=== PATIENT | female | born 1995 | race Caucasian/White ===

== ENCOUNTER 2019-09-15 00:44 | Inpatient (IN) | payer OTHER ==
[2019-09-15] MEDS ORDERED: Sodium Chloride 0.9% 10 ML Syringe FLUSH PRN (11:03)
[2019-09-15] MEDS ORDERED: Ondansetron 4 MG/2 ML SDV IVPUSH PRN (11:03)
[2019-09-15] MEDS ORDERED: Calcium Carbonate 500 MG Tab.Chew PO PRN (11:03)
[2019-09-15] MEDS ORDERED: Lidocaine 1% 50 ML MDV INJECT ONE (11:03)
[2019-09-15] MEDS ORDERED: Acetaminophen 325 MG Tab PO PRN (11:03)
[2019-09-15] MEDS ORDERED: Nalbuphine 10 MG/1 ML Vial IVPUSH PRN (11:03)
[2019-09-15] MEDS ORDERED: ePHEDrine 50 MG/ML SDV IVPUSH PRN (11:09)
[2019-09-15] MEDS ORDERED: fentaNYL 100 MCG/2 ML SDV EPIDUR PRN (11:09)
[2019-09-15] MEDS ORDERED: diphenhydrAMINE 50 MG/ML SDV IVPUSH PRN (11:09)
[2019-09-15] MEDS ORDERED: fentaNYL/Bupivacaine/NS 2 MCG-0.125% 250 ML EPIDUR PRN (11:09)
[2019-09-15] MEDS ORDERED: Oxytocin/Lactated Ringers 10 UNIT/1,000 ML BAG IV SCH ×2 (11:15)
--- NOTE | 2019-09-15 11:22 | PCM.PREANE ---
Preanesthetic Assessment - Procedure Proposed Procedure: Epidural - Anesthesia/Transfusion/Family Hx Anesthesia History: Prior Anesthesia Without Reaction Family History of Anesthesia Reaction: No Transfusion History: No Prior Transfusion(s) - Review of Systems General: Fatigue Pulmonary: No Symptoms Cardiovascular: No Symptoms Gastrointestinal: Abdominal Pain (labor) Neurological: No Symptoms Other: Reports: None - Physical Assessment Vital Signs: Last Vital Signs Temp 36.6 C 09/15/19 11:03 Pulse 113 H 09/15/19 11:03 Resp 14 09/15/19 11:03 BP 136/91 H 09/15/19 11:03 Pulse Ox 97 09/15/19 11:03 Height: 1.7 m Weight: 112.309 kg ASA Class: 2 Mental Status: Alert & Oriented x3 Airway Class: Mallampati = 1 Dentition: Reports: Normal Dentition Thyro-Mental Finger Breadths: 3 Mouth Opening Finger Breadths: 3 ROM/Head Extension: Full Lungs: Clear to Auscultation, Normal Respiratory Effort Cardiovascular: Regular Rate, Regular Rhythm - Allergies Allergies/Adverse Reactions: Allergies Allergy/AdvReac Type Severity Reaction Status Date / Time No Known Allergies Allergy Verified 09/15/19 11:01 - Anesthesia Plan Pre-Op Medication Ordered: None - Acknowledgements Anesthesia Type Planned: Epidural Pt an Appropriate Candidate for the Planned Anesthesia: Yes Alternatives and Risks of Anesthesia Discussed w Pt/Guardian: Yes Pt/Guardian Understands and Agrees with Anesthesia Plan: Yes PreAnesthesia Questionnaire Gastrointestinal History: Reports: GERD - HOME MEDS Home Medications: Home Meds Pnv No.122/Iron/Folic Acid [ Multi Tablet] 1 tab PO DAILY 09/15/19 [ History] - CURRENT (IN HOUSE) MEDS Current Meds: Current Medications Acetaminophen (Tylenol) 650 mg PO Q4H PRN PRN Reason: Pain (Mild 1-3) and fever Calcium Carbonate/Glycine (Tums) 1,000 mg PO Q2H PRN PRN Reason: Indigestion Diphenhydramine HCl (Benadryl) 25 mg IVPUSH Q6H PRN PRN Reason: Itching Ephedrine Sulfate (Ephedrine Sulfate) 5 mg IVPUSH ASDIRECTED PRN PRN Reason: HYPOTENTSION Fentanyl (Sublimaze) 100 mcg EPIDUR Q3H PRN PRN Reason: Pain Fentanyl/Bupivacaine HCl (Fentanyl/Bupivacaine/Ns 2 Mcg-0.125% 250 Ml) 250 ml EPIDUR CONTINUOUS PRN PRN Reason: Pain Ampicillin Sodium 2 gm/ Sodium (Chloride) 100 mls @ 200 mls/hr IV ONETIME ONE Stop: 09/15/19 11:59 Ampicillin Sodium 1 gm/ Sodium (Chloride) 100 mls @ 200 mls/hr IV Q4H [place] Lactated Ringer's (Ringers, Lactated) 1,000 mls @ 100 mls/hr IV ASDIRECTED [place] Oxytocin/Lactated Ringer's (Pitocin In Lr 10 Units/1,000 Ml) 10 unit in 1,000 mls @ 12 mls/hr IV TITRATE [place]; Protocol Oxytocin/Lactated Ringer's (Pitocin In Lr 10 Units/1,000 Ml) 10 unit in 1,000 mls @ 100 mls/hr IV .CONTINUOUS [place]; Protocol Nalbuphine HCl (Nubain) 10 mg IVPUSH Q2H PRN PRN Reason: Pain Ondansetron HCl (Zofran) 4 mg IVPUSH Q4H PRN PRN Reason: Nausea/Vomiting Sodium Chloride (Saline Flush) 10 ml FLUSH ASDIRECTED PRN PRN Reason: Keep Vein Open Discontinued Medications Lidocaine HCl (Xylocaine 1%) 50 ml INJECT ONETIME ONE Stop: 09/15/19 11:04
[2019-09-15] MEDS ORDERED: Ampicillin 2 GM in Sodium Chloride 0.9% 100 ML IV ONE (11:30)
[2019-09-15] MEDS: Lactated Ringers 1,000 ML IV SCH ×3 (11:39→15:06)
--- NOTE | 2019-09-15 15:04 | PCM.LDHP ---
<Glenroy Lockhart - Last Filed: 09/15/19 15:15> L&D History of Present Illness - General Date of Service: 09/15/19 Admit Problem/Dx: Patient Status Order with Admit Dx/Problem 09/15/19 11:04 Patient Status [ADT] Routine Admission Diagnosis/Problem Admission Diagnosis/Problem 09/15/19 14:57 Roseanne is a 32-year-old 1 para 0 white female at 40-1/7 weeks gestational age with an EDITH of 09/14/2019 admitted in active labor with advanced cervical dilation. Source of Information: Patient History Limitations: Reports: No Limitations - History of Present Illness Introduction:: Roseanne is a 32-year-old 1 para 0 white female at 40-1/7 weeks gestational age with an EDITH of 09/14/2019 admitted in active labor with advanced cervical dilation. She started labor yesterday evening 09/14/19 which progressed early this morning with contractions occurring approximately every 30 minutes. She was seen in the clinic this morning for a 40 week appointment where she was assessed to be 4 cm dilated. She was then sent to Labor and Delivery. hand rigger history 2 para 0. EDITH 09/14/19 as determined by LMP starting 12/08. and supported by 3 ultrasounds on 04/13/19, 08/31/2019/ and 09/06/2019. Patient had menarche at 14. Has hx of irregular cycles occurring every 28-36 days. She is not using any control to time conception. couse was relatively unremarkable. She declined genetic testing. She desired a minimally invasive course. Pt refused STD screening, 1-hour GTT, Tdap, influenza. Rubella immunity status unknown. Patient has not received her hepatitis B vaccination course. She plans to breastfeed. First visit was on 06/02/2019. She had an early ultrasound performed at a [facility] in [place] on 04/13/19. She had regular visits. Weight gain was from 195 pounds up to 247 pounds for a 52 pound weight gain. Vital signs are stable throughout the course and her fundal height growth was appropriate. Laboratory testing in showed blood to be O positive with a negative antibody screen. First hemoglobin is 13.4 g/dL. Platelets were 268, 000. Rubella immune status unknown. RPR is nonreactive. Urine culture was negative. Hepatitis B and HIV assays were not performed. Chlamydia and gonorrhea tests were not performed. Second trimester labs showed hemoglobin 13.8 g/dL and platelets at 261,000. 1-hour GTT was not performed. Group B strep screen was positive. Allergies: None Medications: 1. tablets one daily Past medical history: 1. Irritable bowel syndrome Past surgical history: 1. Mole removal 02/2010 2. [place] teeth removal 02/2013 Family history: Mother is alive and well. Father is alive with heart disease, had a stent placed. Has 7 brothers and 3 sisters all alive and well. MGM is alive and will at age 90+. MGF is , had 2 strokes, date of first stroke is unknown, second stroke occurred in his 70s. PGM is alive, has osteoporosis. PGF is alive , has had RI. No bleeding/clotting disorders, anesthesia problems, - related problems or clotting problems noted in the family. Social history: Patient is . Lives in [place]. is [place]. She does not use alcohol, tobacco, or drugs. Review of Systems: In general patient has no complaints other than active labor. Skin: Negative Lungs: No infectious symptoms or shortness of breath Cardiovascular: No chest pain or exercise intolerance Breasts: No lumps, changes in size, pain, dimpling, discharge or axillary or supraclavicular concerns GI: Negative : Negative Musculoskeletal: Negative Neurological: Negative In general the patient is well-developed, well-nourished, pleasant female of stated age in no acute distress. She is experiencing labor contractions. Vital signs are stable. Patient is afebrile. On last evaluation in clinic her blood pressure was 114/86. Weight was 247 pounds. Pregravid weight was 195 pounds. Pregravid BMI was 31.8. Height is 5'7". Skin is warm and dry without lesions. HEENT, neck and back within normal limits Lungs are clear with good breath sounds in all lung ocasio. Cardiovascular exam shows regular rate and rhythm without murmurs. Breast exam done at time of first visit but no repeated at this time. Patient plans to breast-feed. Abdomen is gravid with last fundal height in clinic at 40cm. Genital exam on last evaluation shows cervix to be 5 cm, 100% effaced, soft, -2 station and anterior position. Baby in cephalic position. Extremities and neurological exam are grossly within normal limits. Pain Score: 10 - Related Data Allergies/Adverse Reactions: Allergies Allergy/AdvReac Type Severity Reaction Status Date / Time No Known Allergies Allergy Verified 09/15/19 11:01 Home Medications: Home Meds Pnv No.122/Iron/Folic Acid [ Multi Tablet] 1 tab PO DAILY 09/15/19 [ History] Past Medical History Gastrointestinal History: Reports: GERD - Past Surgical History HEENT Surgical History: Reports: Other (See Below) Other HEENT Surgeries/Procedures: [place] tooth extraction Social & Family History - Family History Family Medical History: Noncontributory - Tobacco Use Smoking Status *Q: Never Smoker Second Hand Smoke Exposure: No - Caffeine Use Caffeine Use: Reports: None - Recreational Drug Use Recreational Drug Use: No H&P Review of Systems - Review of Systems: Review Of Systems: See Below L&D Exam - Exam Exam: See Below - Vital Signs Vital Signs: Last Vital Signs Temp 98 F 09/15/19 11:03 Pulse 113 H 09/15/19 11:03 Resp 14 09/15/19 11:03 BP 136/91 H 09/15/19 11:03 Pulse Ox 97 09/15/19 11:03 Weight: 112.309 kg - Patient Data Lab Results Last 24 hrs: Laboratory Results - last 24 hr 09/15/19 Range/Units 11:29 WBC 8.36 (3.98-10.04) K/mm3 RBC 4.67 (3.98-5.22) M/mm3 Hgb 13.1 (11.2-15.7) gm/dl Hct 39.1 (34.1-44.9) % MCV 83.7 D (79.4-94.8) fl MCH 28.1 (25.6-32.2) pg MCHC 33.5 (32.2-35.5) g/dl RDW Std Deviation 41.9 (36.4-46.3) fL Plt Count 256 (182-369) K/mm3 MPV 10.3 (9.4-12.3) fl Neut % (Auto) 78.6 H (34.0-71.1) % Lymph % (Auto) 13.4 L (19.3-51.7) % [place] % (Auto) 7.1 (4.7-12.5) % Eos % (Auto) 0.4 L (0.7-5.8) Baso % (Auto) 0.1 (0.1-1.2) % Neut # (Auto) 6.58 H (1.56-6.13) K/mm3 Lymph # (Auto) 1.12 L (1.18-3.74) K/mm3 Het[place] # (Auto) 0.59 H (0.24-0.36) K/mm3 Eos # (Auto) 0.03 L (0.04-0.36) K/mm3 Baso # (Auto) 0.01 (0.01-0.08) K/mm3 Result Diagrams: 09/15/19 11:29 Problem List Initiated/Reviewed/Updated: Yes Orders Last 24hrs: Active Orders 24 hr Category Date Time Status Patient Status [ADT] Routine ADT 09/15/19 11:04 Active Activity as Tolerated [RC] PFP Care 09/15/19 11:03 Active Communication Order [RC] ASDIRECTED Care 09/15/19 11:03 Active Communication Order [RC] ASDIRECTED Care 09/15/19 11:09 Active Cooling Warming Measures [RC] ASDIRECTED Care 09/15/19 11:09 Active Heart Tones [RC] ASDIRECTED Care 09/15/19 11:04 Active Notify Provider [RC] ASDIRECTED Care 09/15/19 11:09 Active Notify Provider [RC] PFP Care 09/15/19 11:03 Active Notify Provider [RC] PRN Care 09/15/19 11:03 Active Oxygen Therapy [RC] ASDIRECTED Care 09/15/19 11:09 Active Peripheral IV Care [RC] . DIRECTED Care 09/15/19 11:04 Active Pulse Oximetry [RC] ASDIRECTED Care 09/15/19 11:09 Active Urinary Catheter Assessment [RC] ASDIRECTED Care 09/15/19 11:03 Active Vital Signs [RC] ASDIRECTED Care 09/15/19 11:09 Active Vital Signs [RC] PER UNIT ROUTINE Care 09/15/19 11:03 Active RAPID PLASMA REAGIN,RPR [CHEM] Routine Lab 09/15/19 11:29 Received Acetaminophen [Tylenol] Med 09/15/19 11:03 Active 650 mg PO Q4H PRN Ampicillin 1 gm Med 09/15/19 15:30 Active Sodium Chloride 0.9% [Normal Saline] 100 ml IV Q4H Bupivicaine/fentaNYL/NS [fentaNYL/Bupivacaine/NS 2 MCG- Med 09/15/19 11:09 Active 0.125% 250 ML] 250 ml EPIDUR CONTINUOUS PRN Calcium Carbonate [Tums] Med 09/15/19 11:03 Active 1,000 mg PO Q2H PRN Lactated Ringers [Ringers, Lactated] 1,000 ml Med 09/15/19 11:15 Active IV ASDIRECTED Nalbuphine [Nubain] Med 09/15/19 11:03 Active 10 mg IVPUSH Q2H PRN Ondansetron [Zofran] Med 09/15/19 11:03 Active 4 mg IVPUSH Q4H PRN Oxytocin/Lactated Ringers [Pitocin in LR 10 Units/1,000 Med 09/15/19 11:15 Active ML] 10 unit in 1,000 ml IV .CONTINUOUS Oxytocin/Lactated Ringers [Pitocin in LR 10 Units/1,000 Med 09/15/19 11:15 Active ML] 10 unit in 1,000 ml IV TITRATE Sodium Chloride 0.9% [Saline Flush] Med 09/15/19 11:03 Active 10 ml FLUSH ASDIRECTED PRN diphenhydrAMINE [Benadryl] Med 09/15/19 11:09 Active 25 mg IVPUSH Q6H PRN ePHEDrine [ePHEDrine sulfate] Med 09/15/19 11:09 Active 5 mg IVPUSH ASDIRECTED PRN fentaNYL [Sublimaze] Med 09/15/19 11:09 Active 100 mcg EPIDUR Q3H PRN Electronic Heart Tones Ext w TOCO [WOMSER] Oth 09/15/19 11:03 Ordered Routine Electronic Heart Tones Internal [WOMSER] Per Unit Oth 09/15/19 11:03 Ordered Routine Peripheral IV Insertion Adult [OM.PC] Routine Oth 09/15/19 11:03 Ordered Resuscitation Status Routine Resus Stat 09/15/19 11:03 Ordered Medication Orders Acetaminophen (Tylenol) 650 mg PO Q4H PRN PRN Reason: Pain (Mild 1-3) and fever Calcium Carbonate/Glycine (Tums) 1,000 mg PO Q2H PRN PRN Reason: Indigestion Diphenhydramine HCl (Benadryl) 25 mg IVPUSH Q6H PRN PRN Reason: Itching Ephedrine Sulfate (Ephedrine Sulfate) 5 mg IVPUSH ASDIRECTED PRN PRN Reason: HYPOTENTSION Fentanyl (Sublimaze) 100 mcg EPIDUR Q3H PRN PRN Reason: Pain Last Admin: 09/15/19 14:26 Dose: 100 mcg Fentanyl/Bupivacaine HCl (Fentanyl/Bupivacaine/Ns 2 Mcg-0.125% 250 Ml) 250 ml EPIDUR CONTINUOUS PRN PRN Reason: Pain Ampicillin Sodium 1 gm/ Sodium (Chloride) 100 mls @ 200 mls/hr IV Q4H [place] Lactated Ringer's (Ringers, Lactated) 1,000 mls @ 100 mls/hr IV ASDIRECTED [place] Last Admin: 09/15/19 14:18 Dose: 100 mls/hr Infusion: 09/15/19 14:18 Dose: 100 mls/hr Admin: 09/15/19 11:39 Dose: 100 mls/hr Oxytocin/Lactated Ringer's (Pitocin In Lr 10 Units/1,000 Ml) 10 unit in 1,000 mls @ 12 mls/hr IV TITRATE [place]; Protocol Oxytocin/Lactated Ringer's (Pitocin In Lr 10 Units/1,000 Ml) 10 unit in 1,000 mls @ 100 mls/hr IV .CONTINUOUS [place]; Protocol Nalbuphine HCl (Nubain) 10 mg IVPUSH Q2H PRN PRN Reason: Pain Ondansetron HCl (Zofran) 4 mg IVPUSH Q4H PRN PRN Reason: Nausea/Vomiting Sodium Chloride (Saline Flush) 10 ml FLUSH ASDIRECTED PRN PRN Reason: Keep Vein Open Assessment/Plan Comment:: Assessment: 1. 40-1/7 week intrauterine , active labor, membranes ruptured via amniotomy. 2. Group B strep positive status. Patient is receiving anitbiotis per protocol 3. Patient plans to breastfeed 4. Patient desires epidural in labor and delivery 5. Rubella immune status unknown 6. Patient has not received her Tdap 7. RPR nonreactive Plan: 1. Anticipate normal spontaneous vaginal delivery 2. Epidural for labor and analgesia 3. Support breast-feeding decision 4. Routine labor care. <Rafael Soler - Last Filed: 09/15/19 17:58> L&D History of Present Illness - General Admit Problem/Dx: Patient Status Order with Admit Dx/Problem 09/15/19 11:04 Patient Status [ADT] Routine Admission Diagnosis/Problem Admission Diagnosis/Problem L&D Exam - Vital Signs Vital Signs: Last Vital Signs Temp 36.6 C 09/15/19 11:03 Pulse 113 H 09/15/19 11:03 Resp 14 09/15/19 11:03 BP 136/91 H 09/15/19 11:03 Pulse Ox 97 09/15/19 11:03 - Patient Data Lab Results Last 24 hrs: Laboratory Results - last 24 hr 09/15/19 09/15/19 Range/Units 11:29 11:29 WBC 8.36 (3.98-10.04) K/mm3 RBC 4.67 (3.98-5.22) M/mm3 Hgb 13.1 (11.2-15.7) gm/dl Hct 39.1 (34.1-44.9) % MCV 83.7 D (79.4-94.8) fl MCH 28.1 (25.6-32.2) pg MCHC 33.5 (32.2-35.5) g/dl RDW Std Deviation 41.9 (36.4-46.3) fL Plt Count 256 (182-369) K/mm3 MPV 10.3 (9.4-12.3) fl Neut % (Auto) 78.6 H (34.0-71.1) % Lymph % (Auto) 13.4 L (19.3-51.7) % [place] % (Auto) 7.1 (4.7-12.5) % Eos % (Auto) 0.4 L (0.7-5.8) Baso % (Auto) 0.1 (0.1-1.2) % Neut # (Auto) 6.58 H (1.56-6.13) K/mm3 Lymph # (Auto) 1.12 L (1.18-3.74) K/mm3 [place] # (Auto) 0.59 H (0.24-0.36) K/mm3 Eos # (Auto) 0.03 L (0.04-0.36) K/mm3 Baso # (Auto) 0.01 (0.01-0.08) K/mm3 RPR Non-reactive (NONREACTIVE) Result Diagrams: 09/15/19 11:29 Orders Last 24hrs: Active Orders 24 hr Category Date Time Status Patient Status [ADT] Routine ADT 09/15/19 11:04 Active Activity as Tolerated [RC] PFP Care 09/15/19 11:03 Active Communication Order [RC] ASDIRECTED Care 09/15/19 11:03 Active Communication Order [RC] ASDIRECTED Care 09/15/19 11:09 Active Cooling Warming Measures [RC] ASDIRECTED Care 09/15/19 11:09 Active Heart Tones [RC] ASDIRECTED Care 09/15/19 11:04 Active Notify Provider [RC] ASDIRECTED Care 09/15/19 11:09 Active Notify Provider [RC] PFP Care 09/15/19 11:03 Active Notify Provider [RC] PRN Care 09/15/19 11:03 Active Oxygen Therapy [RC] ASDIRECTED Care 09/15/19 11:09 Active Peripheral IV Care [RC] . DIRECTED Care 09/15/19 11:04 Active Pulse Oximetry [RC] ASDIRECTED Care 09/15/19 11:09 Active Urinary Catheter Assessment [RC] ASDIRECTED Care 09/15/19 11:03 Active Vital Signs [RC] PER UNIT ROUTINE Care 09/15/19 11:03 Active Regular Diet [DIET] Diet 09/15/19 Dinner Active Acetaminophen [Tylenol] Med 09/15/19 11:03 Active 650 mg PO Q4H PRN Ampicillin 1 gm Med 09/15/19 15:30 Active Sodium Chloride 0.9% [Normal Saline] 100 ml IV Q4H Bupivicaine/fentaNYL/NS [fentaNYL/Bupivacaine/NS 2 MCG- Med 09/15/19 11:09 Active 0.125% 250 ML] 250 ml EPIDUR CONTINUOUS PRN Calcium Carbonate [Tums] Med 09/15/19 11:03 Active 1,000 mg PO Q2H PRN Lactated Ringers [Ringers, Lactated] 1,000 ml Med 09/15/19 11:15 Active IV ASDIRECTED Nalbuphine [Nubain] Med 09/15/19 11:03 Active 10 mg IVPUSH Q2H PRN Ondansetron [Zofran] Med 09/15/19 11:03 Active 4 mg IVPUSH Q4H PRN Oxytocin/Lactated Ringers [Pitocin in LR 10 Units/1,000 Med 09/15/19 11:15 Active ML] 10 unit in 1,000 ml IV .CONTINUOUS Oxytocin/Lactated Ringers [Pitocin in LR 10 Units/1,000 Med 09/15/19 11:15 Active ML] 10 unit in 1,000 ml IV TITRATE Sodium Chloride 0.9% [Saline Flush] Med 09/15/19 11:03 Active 10 ml FLUSH ASDIRECTED PRN diphenhydrAMINE [Benadryl] Med 09/15/19 11:09 Active 25 mg IVPUSH Q6H PRN ePHEDrine [ePHEDrine sulfate] Med 09/15/19 11:09 Active 5 mg IVPUSH ASDIRECTED PRN fentaNYL [Sublimaze] Med 09/15/19 11:09 Active 100 mcg EPIDUR Q3H PRN Electronic Heart Tones Ext w TOCO [WOMSER] Oth 09/15/19 11:03 Ordered Routine Electronic Heart Tones Internal [WOMSER] Per Unit Oth 09/15/19 11:03 Ordered Routine Peripheral IV Insertion Adult [OM.PC] Routine Oth 09/15/19 11:03 Ordered Resuscitation Status Routine Resus Stat 09/15/19 11:03 Ordered Medication Orders Acetaminophen (Tylenol) 650 mg PO Q4H PRN PRN Reason: Pain (Mild 1-3) and fever Calcium Carbonate/Glycine (Tums) 1,000 mg PO Q2H PRN PRN Reason: Indigestion Diphenhydramine HCl (Benadryl) 25 mg IVPUSH Q6H PRN PRN Reason: Itching Ephedrine Sulfate (Ephedrine Sulfate) 5 mg IVPUSH ASDIRECTED PRN PRN Reason: HYPOTENTSION Fentanyl (Sublimaze) 100 mcg EPIDUR Q3H PRN PRN Reason: Pain Last Admin: 09/15/19 14:26 Dose: 100 mcg Fentanyl/Bupivacaine HCl (Fentanyl/Bupivacaine/Ns 2 Mcg-0.125% 250 Ml) 250 ml EPIDUR CONTINUOUS PRN PRN Reason: Pain Ampicillin Sodium 1 gm/ Sodium (Chloride) 100 mls @ 200 mls/hr IV Q4H [place] Last Admin: 09/15/19 16:04 Dose: 200 mls/hr Lactated Ringer's (Ringers, Lactated) 1,000 mls @ 100 mls/hr IV ASDIRECTED [place] Last Admin: 09/15/19 15:06 Dose: 100 mls/hr Infusion: 09/15/19 15:06 Dose: 100 mls/hr Admin: 09/15/19 14:18 Dose: 100 mls/hr Infusion: 09/15/19 14:18 Dose: 100 mls/hr Admin: 09/15/19 11:39 Dose: 100 mls/hr Oxytocin/Lactated Ringer's (Pitocin In Lr 10 Units/1,000 Ml) 10 unit in 1,000 mls @ 12 mls/hr IV TITRATE [place]; Protocol Oxytocin/Lactated Ringer's (Pitocin In Lr 10 Units/1,000 Ml) 10 unit in 1,000 mls @ 100 mls/hr IV .CONTINUOUS [place]; Protocol Nalbuphine HCl (Nubain) 10 mg IVPUSH Q2H PRN PRN Reason: Pain Ondansetron HCl (Zofran) 4 mg IVPUSH Q4H PRN PRN Reason: Nausea/Vomiting Sodium Chloride (Saline Flush) 10 ml FLUSH ASDIRECTED PRN PRN Reason: Keep Vein Open Assessment/Plan Comment:: 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
[2019-09-15] MEDS: Ampicillin 1 GM in Sodium Chloride 0.9% 100 ML IV SCH ×3 (16:04→23:56)
[2019-09-16] MEDS ORDERED: Bupivacaine 0.25% 10 ML SDV ONE
[2019-09-16] MEDS ORDERED: ePHEDrine 50 MG/ML SDV ONE
--- NOTE | 2019-09-16 01:16 | PCM.SN ---
- Free Text/Narrative Note: Delivery note: Roseanne is a 32-year-old 1 para 0 white female at 40-1/7 weeks gestational age with an EDITH of 09/14/2019 admitted in active labor with advanced cervical dilation. Patient progressed to complete cervical dilation and at approximately 0044 hours on 09/16/2019 patient delivered a viable, lombardi, male infant with Apgars of 8 and 9, weight of 4070 g indices 8 pounds 15.6 ounces) in a direct occiput anterior position. The baby was placed on mom's abdomen. Nose and mouth were bulb suctioned. The cord was allowed to pulsate for processing 1-2 minutes and was clamped 2 and cut by the baby's father. Pitocin was withheld initially upon the request of the patient but after a period of being mildly increased bleeding from the uterus. Pitocin was started 500 mL an hour to facilitate increase uterine tone and decreased likelihood of further bleeding. Small posterior vaginal laceration was then applied. It was sutured with 3-0 Monocryl in a short running lock suture. The placenta delivered in a Spears presentation at 00 56 hours, appeared intact and complete and was discarded per patient desire. Assessment blood loss was approximately 300 mL. The patient plans to breast-feed. Condition: Good
[2019-09-16] MEDS ORDERED: Benzocaine/Menthol 20%-0.5% Spray 56 GM Canister TOP PRN (02:34)
[2019-09-16] MEDS ORDERED: Witch Hazel Medicated Pads 40/Jar TOP PRN (02:34)
[2019-09-16] MEDS ORDERED: Acetaminophen 325 MG Tab PO PRN (02:34)
[2019-09-16] MEDS ORDERED: Docusate Sodium 100 MG Cap PO PRN (02:34)
[2019-09-16] MEDS: Ibuprofen 600 MG Tab PO PRN ×3 (03:17→21:20)
--- NOTE | 2019-09-16 11:48 | PCM48HPAN ---
Post Anesthesia Note - EVALUATION WITHIN 48HRS OF ANESTHETIC Vital Signs in Normal Range: Yes Patient Participated in Evaluation: Yes Respiratory Function Stable: Yes Airway Patent: Yes Cardiovascular Function Stable: Yes Hydration Status Stable: Yes Pain Control Satisfactory: Yes Nausea and Vomiting Control Satisfactory: Yes Mental Status Recovered: Yes Vital Signs: Last Vital Signs Temp 36.8 C 09/16/19 08:33 Pulse 84 09/16/19 08:33 Resp 14 09/16/19 08:33 BP 138/71 09/16/19 08:33 Pulse Ox 97 09/16/19 08:33
--- NOTE | 2019-09-16 11:59 | PCM.SN ---
- Free Text/Narrative Note: note: Patient is doing well in the period. Minimal lochia, voiding well, ambulated without problems. Nursing without concerns. Patient is afebrile, vital signs are stable Abdomen is flat, soft, uterus is below the umbilicus and is firm and nontender. Legs are nontender. Assessment: recovery going well. Plan: Routine care. Patient be discharged home within the next 24-48 hours.
[2019-09-16] MEDS: Prenatal Multivitamin with Calcium/Folic Acid/Iron Tab PO SCH (12:05)
[2019-09-17] MEDS: Prenatal Multivitamin with Calcium/Folic Acid/Iron Tab PO SCH (09:17)
--- NOTE | 2019-09-17 10:07 | PCM.SN ---
- Free Text/Narrative Note: Post Progress Note PPD # 1 Subjective: Doing well overall. Ambulating without difficulty. Lochia minimal. Voiding without difficulty. Tolerating regular diet without nausea or vomiting. Pain controlled with oral medications. Breast-feeding with minimal difficulty. Objective: Vitals: Vital Signs - 24 hr 09/16/19 09/16/19 09/17/19 15:17 20:12 03:37 Temperature 36.4 C 36.6 C 36.1 C Pulse, 95 93 72 Peripheral Respiratory 16 16 14 Rate Blood Pressure 135/78 138/73 121/77 O2 Sat by Pulse 98 99 98 Oximetry Physical Exam General: Alert and oriented, no acute distress Lungs: Clear to auscultation bilaterally Heart: Regular rate and rhythm Abdomen: Soft, minimal appropriate tenderness, non-distended, fundus midline, nontender, and at the umbilicus Extremities: No edema Laboratory Tests 09/15/19 09/15/19 Range/Units 11:29 11:29 WBC 8.36 (3.98-10.04) K/mm3 RBC 4.67 (3.98-5.22) M/mm3 Hgb 13.1 (11.2-15.7) gm/dl Hct 39.1 (34.1-44.9) % MCV 83.7 D (79.4-94.8) fl MCH 28.1 (25.6-32.2) pg MCHC 33.5 (32.2-35.5) g/dl RDW Std Deviation 41.9 (36.4-46.3) fL Plt Count 256 (182-369) K/mm3 MPV 10.3 (9.4-12.3) fl Neut % (Auto) 78.6 H (34.0-71.1) % Lymph % (Auto) 13.4 L (19.3-51.7) % [place] % (Auto) 7.1 (4.7-12.5) % Eos % (Auto) 0.4 L (0.7-5.8) Baso % (Auto) 0.1 (0.1-1.2) % Neut # (Auto) 6.58 H (1.56-6.13) K/mm3 Lymph # (Auto) 1.12 L (1.18-3.74) K/mm3 [place] # (Auto) 0.59 H (0.24-0.36) K/mm3 Eos # (Auto) 0.03 L (0.04-0.36) K/mm3 Baso # (Auto) 0.01 (0.01-0.08) K/mm3 RPR Non-reactive (NONREACTIVE) ASSESSMENT: 24-year-old female 001 s/p normal vaginal delivery PPD #1, complicated by GBS positive and received a total of 4 doses of antibiotics prior to delivery, limited care with declining majority of testing and irritable bowel syndrome PLAN: Doing well Breast-feeding with minimal difficulty. Assist as needed Lochia minimal. Continue to monitor for appropriate lochia. Continue routine care Patient declines vaccines Anticipate discharge home today Stephen Brown MD 10:06 AM 09/17/2019
--- NOTE | 2019-09-17 10:15 | PCM.DCSUM1 ---
Discharge Summary - Hospital Course Free Text/Narrative:: Delivery note: Roseanne is a 32-year-old 1 para 0 white female at 40-1/7 weeks gestational age with an EDITH of 09/14/2019 admitted in active labor with advanced cervical dilation. Patient progressed to complete cervical dilation and at approximately 0044 hours on 09/16/2019 patient delivered a viable, lombardi, male infant with Apgars of 8 and 9, weight of 4070 g indices 8 pounds 15.6 ounces) in a direct occiput anterior position. The baby was placed on mom's abdomen. Nose and mouth were bulb suctioned. The cord was allowed to pulsate for processing 1-2 minutes and was clamped 2 and cut by the baby's father. Pitocin was withheld initially upon the request of the patient but after a period of being mildly increased bleeding from the uterus. Pitocin was started 500 mL an hour to facilitate increase uterine tone and decreased likelihood of further bleeding. Small posterior vaginal laceration was then applied. It was sutured with 3-0 Monocryl in a short running lock suture. The placenta delivered in a Spears presentation at 00 56 hours, appeared intact and complete and was discarded per patient desire. Assessment blood loss was approximately 300 mL. The patient plans to breast-feed. Condition: Good HPI Initial Comments: Delivery note: Roseanne is a 32-year-old 1 para 0 white female at 40-1/7 weeks gestational age with an EDITH of 09/14/2019 admitted in active labor with advanced cervical dilation. Patient progressed to complete cervical dilation and at approximately 0044 hours on 09/16/2019 patient delivered a viable, lombardi, male infant with Apgars of 8 and 9, weight of 4070 g indices 8 pounds 15.6 ounces) in a direct occiput anterior position. The baby was placed on mom's abdomen. Nose and mouth were bulb suctioned. The cord was allowed to pulsate for processing 1-2 minutes and was clamped 2 and cut by the baby's father. Pitocin was withheld initially upon the request of the patient but after a period of being mildly increased bleeding from the uterus. Pitocin was started 500 mL an hour to facilitate increase uterine tone and decreased likelihood of further bleeding. Small posterior vaginal laceration was then applied. It was sutured with 3-0 Monocryl in a short running lock suture. The placenta delivered in a Spears presentation at 00 56 hours, appeared intact and complete and was discarded per patient desire. Assessment blood loss was approximately 300 mL. The patient plans to breast-feed. Condition: Good Brief History: Delivery note: Roseanne is a 32-year-old 1 para 0 white female at 40-1/7 weeks gestational age with an EDITH of 09/14/2019 admitted in active labor with advanced cervical dilation. Patient progressed to complete cervical dilation and at approximately 0044 hours on 09/16/2019 patient delivered a viable, lombardi, male with Apgars of 8 and 9, weight of 4070 g indices 8 pounds 15.6 ounces) in a direct occiput anterior position. The baby was placed on mom's abdomen. Nose and mouth were bulb suctioned. The cord was allowed to pulsate for processing 1-2 minutes and was clamped 2 and cut by the baby's father. Pitocin was withheld initially upon the request of the patient but after a period of being mildly increased bleeding from the uterus. Pitocin was started 500 mL an hour to facilitate increase uterine tone and decreased likelihood of further bleeding. Small posterior vaginal laceration was then applied. It was sutured with 3-0 Monocryl in a short running lock suture. The placenta delivered in a Spears presentation at 00 56 hours, appeared intact and complete and was discarded per patient desire. Assessment blood loss was approximately 300 mL. The patient plans to breast-feed. Condition: Good Diagnosis: Stroke: No - Discharge Data Discharge Date: 09/17/19 Discharge Disposition: Home, Self-Care 01 Condition: Good - Referral to Home Health Primary Care Physician: Rafael Soler MD - Discharge Diagnosis/Problem(s) (1) 40 weeks gestation of SNOMED Code(s): 69196284 ICD Code: Z3A.40 - 40 WEEKS GESTATION OF Status: Acute Current Visit: Yes (2) Limited care SNOMED Code(s): 234026425 ICD Code: O09.30 - SUPRVSN OF PREG W INSUFFICIENT ANTENAT CARE, UNSP TRIMESTER Status: Acute Current Visit: Yes (3) GBS (group B Streptococcus carrier), +RV culture, currently SNOMED Code(s): 1329844833142, 458116411, 4694453232502 ICD Code: O99.820 - STREPTOCOCCUS B CARRIER STATE COMPLICATING Status: Acute Current Visit: Yes (4) First degree perineal laceration during delivery SNOMED Code(s): 625149154 ICD Code: O70.0 - FIRST DEGREE PERINEAL LACERATION DURING DELIVERY Status: Acute Current Visit: Yes (5) Vaginal delivery SNOMED Code(s): 941440022 ICD Code: O80 - ENCOUNTER FOR FULL-TERM UNCOMPLICATED DELIVERY Status: Acute Current Visit: Yes - Patient Summary/Data Complications: None Consults: None Hospital Course: Roseanne Rajan was admitted for spontaneous labor. On admission her cervix was dilated to 5 cm. She was GBS positive and received a total of 4 doses of ampicillin prior to delivery. She was given pitocin for augmentation. She was given an epidural for anesthesia. She had artificial rupture of membranes with clear fluid. She progressed to complete and began pushing. On 09/16/2019 she had a normal vaginal delivery of a live male at 00:44. Apgars of 8 and 9. Weight of 4070 g (8 pounds 15.6 ounces). Her course was uneventful. Her pain was well controlled and she had minimal lochia. She was ambulating, tolerating a regular diet and voiding normally. She was breast- feeding with minimal difficulty. She was afebrile and her hematocrit was 39.1 on admission. She desired to be discharged home on the morning of PPD #1. Her blood type is O+. - Patient Instructions Diet: Regular Diet as Tolerated Activity: Apply Ice, As Tolerated Activity, Other: Nothing in the vagina for 6 weeks Driving: May Drive Today Showering/Bathing: May Shower Notify Provider of: Fever, Increased Pain, Swelling and Redness, Drainage, Nausea and/or Vomiting Other/Special Instructions: Please contact your physician's office if you have heavy vaginal bleeding enough to soak a pad in less than an hour for several hours. Monitor for any signs of an infection in the breasts with severe pain or redness of the breast. - Discharge Plan *PRESCRIPTION DRUG MONITORING PROGRAM REVIEWED*: Not Applicable *COPY OF PRESCRIPTION DRUG MONITORING REPORT IN PATIENT JAELYN: Not Applicable Home Medications: Home Meds Pnv No.122/Iron/Folic Acid [ Multi Tablet] 1 tab PO DAILY 09/15/19 [ History] Acetaminophen [Tylenol] 650 mg PO Q6H PRN tablet 09/17/19 [Rx] Benzocaine/Menthol [Dermoplast Pain Relief Purmela] 1 spray TOP ASDIRECTED PRN canister 09/17/19 [Rx] Docusate Sodium [Colace] 100 mg PO BID PRN cap 09/17/19 [Rx] Ibuprofen [Motrin] 600 mg PO Q6H PRN tablet 09/17/19 [Rx] Witch Magali [Tucks] 1 pad TOP ASDIRECTED PRN pad 09/17/19 [Rx] Patient Handouts: Breast Pumping Tips, and Self-Care, Vaginal Delivery, Care After Referrals: Rafael Soler MD [Primary Care Provider] - (Follow-up in 2-3 weeks for routine visit or earlier as needed.) - Discharge Summary/Plan Comment DC Time >30 min.: No - Patient Data Vitals - Most Recent: Last Vital Signs Temp 36.1 C 09/17/19 03:37 Pulse 72 09/17/19 03:37 Resp 14 09/17/19 03:37 BP 121/77 09/17/19 03:37 Pulse Ox 98 09/17/19 03:37 Weight - Most Recent: 112.309 kg I&O - Last 24 hours: Intake & Output 09/16/19 09/17/19 09/17/19 22:59 06:59 14:59 Intake Total 420 Balance 420 Med Orders - Current: Current Medications Acetaminophen (Tylenol) 650 mg PO Q4H PRN PRN Reason: mild pain or fever Benzocaine/Menthol (Dermoplast Pain Relief Purmela) 0 gm TOP ASDIRECTED PRN PRN Reason: Perineal Comfort Measure Docusate Sodium (Colace) 100 mg PO BID PRN PRN Reason: Constipation Ibuprofen (Motrin) 600 mg PO Q4H PRN PRN Reason: Mild pain or fever Last Admin: 09/16/19 21:20 Dose: 600 mg Prenat Multivit/Paper Cone Maker/Iron/Folic Ac ( Plus Iron) 1 each PO DAILY [place] Last Admin: 09/17/19 09:17 Dose: 1 each Witch Magali (Tucks) 1 pad TOP ASDIRECTED PRN PRN Reason: Pain Discontinued Medications Acetaminophen (Tylenol) 650 mg PO Q4H PRN PRN Reason: Pain (Mild 1-3) and fever Bupivacaine HCl (Sensorcaine-Mpf 0.25%) 10 ml .ROUTE .STK-MED ONE Stop: 09/16/19 00:01 Calcium Carbonate/Glycine (Tums) 1,000 mg PO Q2H PRN PRN Reason: Indigestion Diphenhydramine HCl (Benadryl) 25 mg IVPUSH Q6H PRN PRN Reason: Itching Ephedrine Sulfate (Ephedrine Sulfate) 5 mg IVPUSH ASDIRECTED PRN PRN Reason: HYPOTENTSION Ephedrine Sulfate (Ephedrine Sulfate) 50 mg .ROUTE .STK-MED ONE Stop: 09/16/19 00:01 Fentanyl (Sublimaze) 100 mcg EPIDUR Q3H PRN PRN Reason: Pain Last Admin: 09/15/19 14:26 Dose: 100 mcg Fentanyl/Bupivacaine HCl (Fentanyl/Bupivacaine/Ns 2 Mcg-0.125% 250 Ml) 250 ml EPIDUR CONTINUOUS PRN PRN Reason: Pain Ampicillin Sodium 2 gm/ Sodium (Chloride) 100 mls @ 200 mls/hr IV ONETIME ONE Stop: 09/15/19 11:59 Last Admin: 09/15/19 11:39 Dose: 200 mls/hr Ampicillin Sodium 1 gm/ Sodium (Chloride) 100 mls @ 200 mls/hr IV Q4H [place] Last Admin: 09/15/19 23:56 Dose: 200 mls/hr Lactated Ringer's (Ringers, Lactated) 1,000 mls @ 100 mls/hr IV ASDIRECTED [place] Last Admin: 09/15/19 15:06 Dose: 100 mls/hr Oxytocin/Lactated Ringer's (Pitocin In Lr 10 Units/1,000 Ml) 10 unit in 1,000 mls @ 12 mls/hr IV TITRATE [place]; Protocol Last Titration: 09/16/19 00:50 Dose: 500 mls/hr Oxytocin/Lactated Ringer's (Pitocin In Lr 10 Units/1,000 Ml) 10 unit in 1,000 mls @ 100 mls/hr IV .CONTINUOUS [place]; Protocol Lidocaine HCl (Xylocaine 1%) 50 ml INJECT ONETIME ONE Stop: 09/15/19 11:04 Last Admin: 09/17/19 02:49 Dose: Not Given Nalbuphine HCl (Nubain) 10 mg IVPUSH Q2H PRN PRN Reason: Pain Ondansetron HCl (Zofran) 4 mg IVPUSH Q4H PRN PRN Reason: Nausea/Vomiting Sodium Chloride (Saline Flush) 10 ml FLUSH ASDIRECTED PRN PRN Reason: Keep Vein Open
[2019-09-17] MEDS: Ibuprofen 600 MG Tab PO PRN (12:06)
== END 2019-09-17 16:22 | disposition home or self-care (01) | DRG 807 ==
LOC: JD.OB 00:44 → OBSVTOIN 09-16 00:44 → JD.OB 09-16 00:45
PROVIDERS: ADMIT Obstetrics & Gynecology; ATTEND Obstetrics & Gynecology
PROC: 10E0XZZ Delivery of Products of Conception, External Approach (ICD-10-PCS; principal; 2019-09-16)
PROC: 10907ZC Drainage of Amniotic Fluid, Therapeutic from Products of Conception, Via Natural or Artificial Opening (ICD-10-PCS; 2019-09-16)
PROC: 0HQ9XZZ Repair Perineum Skin, External Approach (ICD-10-PCS; 2019-09-16)
DX: O48.0 Post-term pregnancy (principal); Z37.0 Single live birth; Z3A.40 40 weeks gestation of pregnancy; O99.824 Streptococcus B carrier state complicating childbirth; O70.0 First degree perineal laceration during delivery; Z79.899 Other long term (current) drug therapy
CPT/HCPCS: 01967; 36415; 51702; 59025; 59409; 85025; 86592; A9270-GY; J0290; J2590; J3010; J3490; J7030; J7120